=== PATIENT | female | born 1970 | race American Indian/Alaskan Native ===

== ENCOUNTER 2020-03-31 07:34 | Inpatient (IN) | payer OTHER ==
[2020-03-31] MEDS ORDERED: ONDANSETRON 4 MG/2 ML INJ ONE (08:14)
[2020-03-31] MEDS ORDERED: FUROSEMIDE 40 MG/4 ML INJ IV ONE (08:20)
[2020-03-31] MEDS ORDERED: ONDANSETRON 4 MG/2 ML INJ IV ONE ×2 (08:20)
[2020-03-31] MEDS ORDERED: PANTOPRAZOLE 40 MG INJ IV ONE (08:26)
--- NOTE | 2020-03-31 09:33 | XRay Report ---
CHEST 1 VIEW 8:51 AM INDICATION / CLINICAL INFORMATION: Neurologic deficit. COMPARISON: None available. FINDINGS: SUPPORT DEVICES: None. HEART / MEDIASTINUM: There is moderate enlargement of the cardiopericardial silhouette. Pulmonary vas culature is probably normal for technique. There is mild aortic tortuosity without aneurysm. LUNGS / PLEURA: No significant pulmonary or pleural abnormality. No pneumothorax. ADDITIONAL FINDINGS: No significant additional findings. IMPRESSION: Moderate enlargement of the cardiopericardial silhouette without acute pulmonary disease. Signer Name: Wilmer Damico MD Signed: 03/31/2020 9:29 AM Workstation Name: [id number]
[2020-03-31 09:42] LABS: Basophils % (Auto) 0.6 % (0.0-1.8); Hematocrit 33.1 % (30.3-42.9); Lymphocytes # (Auto) 0.2 K/mm3 (1.2-5.4); Lymphocytes % (Auto) 3.3 % (13.4-35.0); Mean Corpuscular HGB Conc 33 % (30-34); Mean Corpuscular Volume 86 fl (79-97); Monocytes # (Auto) 0.5 K/mm3 (0.0-0.8); Monocytes % (Auto) 7.8 % (0.0-7.3); Red Blood Count 3.86 M/mm3 (3.65-5.03)
[2020-03-31 09:43] LABS: Platelet Count 88 K/mm3 (140-440); Red Cell Distribution Width 20.1 % (13.2-15.2)
--- NOTE | 2020-03-31 09:46 | Cat Scan Report ---
CT head/brain wo con INDICATION / CLINICAL INFORMATION: 49 years Female; MAIN. TECHNIQUE: Routine CT head without contrast. All CT scans at this location are performed using CT dos e reduction for ALARA by means of automated exposure control. COMPARISON: No previous exams available for comparison. FINDINGS: BRAIN / INTRACRANIAL CONTENTS: There is cerebral white matter disease with areas of decrease attenuat ion involving the periventricular and subcortical regions. The findings are nonspecific though may re flect microvascular angiopathy, advanced for the patient's age. The ventricular system is within norm al limits in size and configuration. There is some beam hardening artifact. However, there is no veronique r CT evidence of acute intracranial hemorrhage or significant mass effect. ORBITS: No significant abnormality of visualized orbits. SINUSES / MASTOIDS: No significant abnormality in the visualized paranasal sinuses or mastoid air pricsilla ls. CRANIOCERVICAL JUNCTION: No significant abnormality. ADDITIONAL FINDINGS: None. IMPRESSION: 1. There is moderate cerebral white matter disease for age as detailed above. There is no CT evidence of acute intracranial hemorrhage. Signer Name: Stephan Bobby MD Signed: 03/31/2020 9:42 AM Workstation Name: [id number]
[2020-03-31 09:53] LABS: INR 1.07 (0.87-1.13)
[2020-03-31 09:54] LABS: Partial Thromboplastin Time 24.3 Sec. (24.2-36.6)
[2020-03-31 10:01] LABS: Thrombin Time 16.5 Sec. (15.1-19.6)
[2020-03-31 10:05] LABS: Creatine Kinase MB 7.3 ng/mL (0.0-4.0)
[2020-03-31 10:09] LABS: Alanine Aminotransferase 22 units/L (7-56); Albumin 4.3 g/dL (3.9-5); BUN/Creatinine Ratio 11; Bilirubin,Direct 0.3 mg/dL (0-0.2); Blood Urea Nitrogen 9 mg/dL (7-17); Calcium 8.9 mg/dL (8.4-10.2); Hemolysis Index 3
[2020-03-31] MEDS ORDERED: POTASSIUM CHLORIDE ER 20 MEQ TAB PO ONE (10:51)
--- NOTE | 2020-03-31 12:25 | Emergency Department Report ---
ED General Adult HPI - General Chief complaint: Nausea/Vomiting/Diarrhea Stated complaint: SEIZURE Time Seen by Provider: 03/31/20 08:18 Source: EMS Mode of arrival: Ambulatory Limitations: No Limitations - History of Present Illness Initial comments: 49-year-old female who experienced a presumed seizure. She told paramedics that she has had seizures before but never treated thereof. According to paramedics she was found on the floor with blood coming from her mouth. She was somewhat responsive. She arrived in the emergency department with altered mental status. It was unsure whether this was a postictal state or not. She was able to tell the paramedics that she did drink alcohol last night. However she did not smell of alcohol. She did not advise recent substance abuse. She has a history of hypertension but is noncompliant with medication. She did vomit prior to arrival. -: minutes(s) Severity scale (0 -10): 5 - Related Data Allergies Allergy/AdvReac Type Severity Reaction Status Date / Time No Known Allergies Allergy Unverified 03/31/20 08:20 ED Review of Systems ROS: Stated complaint: SEIZURE Other details as noted in HPI Comment: Unobtainable due to pts medical conditions ED Past Medical Hx - Past Medical History Previous Medical History?: Yes Hx Hypertension: Yes - Surgical History Past Surgical History?: No - Social History Smoking Status: Never Smoker Substance Use Type: Alcohol ED Physical Exam - General Limitations: Altered Mental Status General appearance: alert, in no apparent distress - Head Head exam: Present: atraumatic, normocephalic - Eye Eye exam: Present: normal appearance. Absent: scleral icterus - ENT ENT exam: Present: mucous membranes moist - Neck Neck exam: Present: normal inspection - Respiratory Respiratory exam: Present: normal lung sounds bilaterally. Absent: respiratory distress - Cardiovascular Cardiovascular Exam: Present: regular rate, normal rhythm. Absent: systolic murmur, diastolic murmur, rubs, gallop - GI/Abdominal GI/Abdominal exam: Present: soft, normal bowel sounds. Absent: distended, tenderness, guarding, rebound - Extremities Exam Extremities exam: Present: normal inspection - Back Exam Back exam: Present: normal inspection - Neurological Exam Neurological exam: Present: altered, CN II-XII intact (As testable). Absent: motor sensory deficit - Psychiatric Psychiatric exam: Present: normal affect, normal mood - Skin Skin exam: Present: warm, dry, intact, normal color. Absent: rash ED Course Vital Signs 03/31/20 03/31/20 03/31/20 08:05 10:00 10:07 Temperature 98.2 F Pulse Rate 89 86 Respiratory 18 18 Rate Blood Pressure 224/174 195/102 Blood Pressure 224/174 [Right] O2 Sat by Pulse 100 100 Oximetry 03/31/20 12:14 Temperature Pulse Rate 88 Respiratory Rate Blood Pressure 195/126 Blood Pressure [Right] O2 Sat by Pulse Oximetry - Reevaluation(s) Reevaluation #1: Patient's mental status has improved somewhat. However her blood pressure has remained as high as over 200 systolic. She was given additional medicine. She was found to have some possible blood admixed with vomit on her clothing. EMS noted that this was possibly due to bleeding from the mouth. It is uncertain as to whether she had a seizure. CT the head showed nothing acute Patient was given potassium for her hypokalemia. It was concluded that she had malignant hypertension and possibly a seizure or hypertensive encephalopathy. She is referred to the hospitalist service for further care and management. 03/31/20 12:28 ED Medical Decision Making - Lab Data Result diagrams: 03/31/20 08:46 03/31/20 08:46 Laboratory Results - last 24 hr 03/31/20 03/31/20 03/31/20 08:46 08:46 08:46 WBC 6.3 RBC 3.86 Hgb 11.0 Hct 33.1 MCV 86 MCH 28 MCHC 33 RDW 20.1 H Plt Count 88 L Lymph % (Auto) 3.3 L [place] % (Auto) 7.8 H Eos % (Auto) 0.0 Baso % (Auto) 0.6 Lymph # (Auto) 0.2 L [place] # (Auto) 0.5 Eos # (Auto) 0.0 Baso # (Auto) 0.0 Seg Neutrophils % 88.3 H Seg Neutrophils # 5.6 PT 13.8 INR 1.07 APTT 24.3 Thrombin Time 16.5 Sodium 134 L Potassium 3.1 L Chloride 90.0 L Carbon Dioxide 26 Anion Gap 21 BUN 9 Creatinine 0.8 Estimated GFR > 60 BUN/Creatinine Ratio 11 Glucose 198 H POC Glucose Calcium 8.9 Total Bilirubin 1.10 Direct Bilirubin 0.3 H Indirect Bilirubin 0.8 AST 38 ALT 22 Alkaline Phosphatase 96 Total Creatine Kinase 279 H CK-MB (CK-2) 7.3 H CK-MB (CK-2) Rel Index 2.6 Troponin T < 0.010 NT-Pro-B Natriuret Pep Total Protein 7.7 Albumin 4.3 Albumin/Globulin Ratio 1.3 Plasma/Serum Alcohol Blood Type Antibody Screen 03/31/20 03/31/20 03/31/20 08:46 08:46 08:50 WBC RBC Hgb Hct MCV MCH MCHC RDW Plt Count Lymph % (Auto) [place] % (Auto) Eos % (Auto) Baso % (Auto) Lymph # (Auto) [place] # (Auto) Eos # (Auto) Baso # (Auto) Seg Neutrophils % Seg Neutrophils # PT INR APTT Thrombin Time Sodium Potassium Chloride Carbon Dioxide Anion Gap BUN Creatinine Estimated GFR BUN/Creatinine Ratio Glucose POC Glucose Calcium Total Bilirubin Direct Bilirubin Indirect Bilirubin AST ALT Alkaline Phosphatase Total Creatine Kinase CK-MB (CK-2) CK-MB (CK-2) Rel Index Troponin T NT-Pro-B Natriuret Pep 313.8 Total Protein Albumin Albumin/Globulin Ratio Plasma/Serum Alcohol < 0.01 Blood Type O POSITIVE Antibody Screen Negative 03/31/20 10:03 WBC RBC Hgb Hct MCV MCH MCHC RDW Plt Count Lymph % (Auto) [place] % (Auto) Eos % (Auto) Baso % (Auto) Lymph # (Auto) [place] # (Auto) Eos # (Auto) Baso # (Auto) Seg Neutrophils % Seg Neutrophils # PT INR APTT Thrombin Time Sodium Potassium Chloride Carbon Dioxide Anion Gap BUN Creatinine Estimated GFR BUN/Creatinine Ratio Glucose POC Glucose 134 H Calcium Total Bilirubin Direct Bilirubin Indirect Bilirubin AST ALT Alkaline Phosphatase Total Creatine Kinase CK-MB (CK-2) CK-MB (CK-2) Rel Index Troponin T NT-Pro-B Natriuret Pep Total Protein Albumin Albumin/Globulin Ratio Plasma/Serum Alcohol Blood Type Antibody Screen - EKG Data -: EKG Interpreted by Me EKG shows normal: sinus rhythm - EKG Data Interpretation: LVH (Deep inferolateral T wave in inversions may be associated with LVH) - Radiology Data Radiology results: image reviewed (Suggestive of cardiomegaly perhaps with some venous congestion to me) Critical care attestation.: If time is entered above; I have spent that time in minutes in the direct care o f this critically ill patient, excluding procedure time. ED Disposition Clinical Impression: Malignant hypertension, Hypokalemia Syncope Qualifiers: Syncope type: unspecified Qualified Code(s): R55 - Syncope and collapse Altered mental status Qualifiers: Altered mental status type: delirium Qualified Code(s): R41.0 - Disorientation, unspecified Disposition: 09 OP ADMIT IP TO THIS HOSP Is pt being admited?: Yes Does the pt Need Aspirin: Yes Condition: Stable Instructions: Syncope (ED), Hypertension (ED) Referrals: PRIMARY CARE, [Primary Care Provider] - 3-5 Days Time of Disposition: 12:31
[2020-03-31] MEDS ORDERED: ASPIRIN 325 MG TAB PO ONE (12:32)
[2020-03-31] MEDS ORDERED: hydrALAZINE 25 MG TAB PO ONE (14:38)
[2020-03-31] MEDS ORDERED: LORazepam 2 MG/ML VIAL ONE (19:21)
[2020-03-31] MEDS ORDERED: levETIRAcetam 1,000 MG in DEXTROSE 5% IN WATER 100 ML IV ONE (19:34)
[2020-03-31] MEDS ORDERED: LORazepam 2 MG/ML VIAL IV ONE (19:48)
[2020-03-31] MEDS ORDERED: levETIRAcetam 1000 MG/NS 0.75% 1,000 MG/100 ML BAG IV ONE (20:30)
[2020-03-31] MEDS ORDERED: ONDANSETRON 4 MG/2 ML INJ IV PRN (20:42)
[2020-03-31] MEDS ORDERED: SODIUM CHLORIDE 0.9% 1000 ML 1,000 ML IV SCH (20:45)
--- NOTE | 2020-03-31 20:46 | History and Physical Report ---
History of Present Illness Chief complaint: My head was hurting History of present illness: 49 YO Female with HTN, ETOH Dependence presents to ED for evaluation. Patient is lethargic and unable to provide history at the time of my evaluation. Patient history taken from EMS, ED staff as well as the patient's family. As per family the patient was found down on the floor with blood coming from her mouth. Family reports they suspect patient "had a seizure". EMS was notified and upon arrival the patient was found to be in distress and subsequently transported to [facility] for further care and evaluation. Patient seen and evaluated in the emergency department. Lab and imaging studies reviewed. Patient found to have a blood pressure of 224 131. Patient found to have status epilepticus suspected secondary to alcohol withdrawal, metabolic encephalopathy, accelerated hypertension. Patient admitted to telemetry due to increased risk of worsening symptoms. Patient initiated on CIWA protocol as well as IV antihypertensive therapy. No further history obtainable. Patient is confused and lethargic at the time of my evaluation but has a positive gag reflex and is able to protect her airway. No prior admission for review. No medication listed at time of admission for reconciliation. Past History Past Medical History: hypertension, other (See HPI) Past Surgical History: No surgical history (Reviewed), Other Social history: , alcohol abuse Family history: hypertension Medications and Allergies Allergies Allergy/AdvReac Type Severity Reaction Status Date / Time No Known Allergies Allergy Unverified 03/31/20 08:20 Active Meds: Active Medications Acetaminophen (Acetaminophen 325 Mg Tab) 650 mg PO Q4H PRN PRN Reason: Pain MILD(1-3)/Fever >100.5/STRONG Famotidine (Famotidine 10 Mg Tab) 10 mg PO BID MELANIE Sodium Chloride (Nacl 0.9% 1000 Ml) 1,000 mls @ 125 mls/hr IV DIRECT MELANIE Levetiracetam (Levetiracetam 500 Mg Tab) 500 mg PO BID MELANIE Ondansetron HCl (Ondansetron 4 Mg/2 Ml Inj) 4 mg IV Q8H PRN PRN Reason: Nausea And Vomiting Sodium Chloride (Sodium Chloride 0.9% 10 Ml Flush Syringe) 10 ml IV BID MELANIE Sodium Chloride (Sodium Chloride 0.9% 10 Ml Flush Syringe) 10 ml IV PRN PRN PRN Reason: LINE FLUSH Review of Systems ROS unobtainable: due to mental status Exam - Constitutional Vitals: Temp Pulse Resp BP Pulse Ox 98.7 F 95 H 21 224/131 100 03/31/20 08:05 03/31/20 19:45 03/31/20 19:45 03/31/20 19:45 03/31/20 19:45 General appearance: Present: mild distress - EENT Eyes: Present: PERRL ENT: hearing intact, clear oral mucosa - Neck Neck: Present: supple, normal ROM - Respiratory Respiratory effort: normal Respiratory: bilateral: CTA - Cardiovascular Heart Sounds: Present: S1 & S2. Absent: rub, click - Extremities Extremities: pulses symmetrical, No edema Peripheral Pulses: within normal limits - Abdominal General gastrointestinal: Present: soft, non-tender, non-distended, normal bowel sounds Female genitourinary: Present: normal - Integumentary Integumentary: Present: clear, warm, dry - Musculoskeletal Musculoskeletal: gait normal, strength equal bilaterally - Psychiatric Psychiatric: no appropriate mood/affect, no intact judgment & insight, no memory intact - Neurologic Neurologic: CNII-XII intact, moves all extremities HEART Score - HEART Score Troponin: Troponin T < 0.010 ng/mL (0.00-0.029) 03/31/20 08:46 Results - Labs CBC & Chem 7: 03/31/20 08:46 03/31/20 08:46 Labs: Abnormal lab results 03/31/20 03/31/20 03/31/20 Range/Units 08:46 08:46 10:03 RDW 20.1 H (13.2-15.2) % Plt Count 88 L (140-440) K/mm3 Lymph % (Auto) 3.3 L (13.4-35.0) % [place] % (Auto) 7.8 H (0.0-7.3) % Lymph # (Auto) 0.2 L (1.2-5.4) K/mm3 Seg Neutrophils % 88.3 H (40.0-70.0) % Sodium 134 L (137-145) mmol/L Potassium 3.1 L (3.6-5.0) mmol/L Chloride 90.0 L (98-107) mmol/L Glucose 198 H (65-100) mg/dL POC Glucose 134 H (70-105) mg/dL Direct Bilirubin 0.3 H (0-0.2) mg/dL Total Creatine Kinase 279 H (30-135) units/L CK-MB (CK-2) 7.3 H (0.0-4.0) ng/mL Assessment and Plan - Patient Problems (1) Status epilepticus Current Visit: Yes Status: Acute Plan to address problem: CT head, neuro check, patient loaded with 1 g Keppra in the emergency department and initiated on Keppra 500 mg p.o. twice daily, supportive care (2) Metabolic encephalopathy Current Visit: Yes Status: Acute Plan to address problem: CT scan of the head, neuro check, BMP, supportive care, fall precautions, seizure precautions, urine drug screen (3) Hypokalemia Current Visit: Yes Status: Acute Plan to address problem: Repleted in the emergency department. (4) Malignant hypertension Current Visit: Yes Status: Acute Plan to address problem: Monitor blood pressure every shift, continue medical management, hydralazine 10 mg IV every 4 hours as needed for systolic blood pressure greater than or equal to 185 (5) Alcohol dependence Current Visit: Yes Status: Acute Plan to address problem: BanVIANNEY garcia protocol, supportive care, blood alcohol level. (6) DVT prophylaxis Current Visit: Yes Status: Acute Plan to address problem: SCD to bilateral lower extremities while in bed, prophylactic anticoagulation
[2020-03-31] MEDS ORDERED: MAGNESIUM SULFATE 1 GM in SODIUM CHLORIDE 0.9% 50 ML IV ONE (21:00)
[2020-03-31] MEDS ORDERED: LORazepam 2 MG/ML VIAL IV PRN (21:02)
[2020-03-31] MEDS ORDERED: THIAMINE 100 MG, FOLIC ACID 1 MG, MULTIPLE VITAMIN INJ, ADULT 10 ML in SODIUM CHLORIDE ... IV ONE (22:15)
[2020-03-31] MEDS: ACETAMINOPHEN 325 MG TAB PO PRN (23:37)
[2020-03-31] MEDS: levETIRAcetam 500 MG TAB PO SCH (23:37)
[2020-04-01] MEDS: FAMOTIDINE 10 MG TAB PO SCH ×3 (01:15→22:33)
[2020-04-01 06:20] LABS: BUN/Creatinine Ratio 13; Blood Urea Nitrogen 13 mg/dL (7-17); Calcium 8.2 mg/dL (8.4-10.2); Hemolysis Index 2
[2020-04-01] MEDS ORDERED: POTASSIUM CHLORIDE ER 20 MEQ TAB PO NR (08:15)
[2020-04-01] MEDS: levETIRAcetam 500 MG TAB PO SCH ×2 (12:10→22:33)
[2020-04-01] MEDS: amLODIPine 10 MG TAB PO SCH (12:10)
[2020-04-01] MEDS: ACETAMINOPHEN 325 MG TAB PO PRN (12:11)
--- NOTE | 2020-04-01 13:32 | Progress Note ---
Assessment and Plan Assessment and plan: --Seizure Current Visit: Yes Status: Acute Plan to address problem: CT head, neuro check, patient loaded with 1 g Keppra in the emergency department and initiated on Keppra 500 mg p.o. twice daily, supportive care Neurology consulted MRI w/wo contrast and EEG ordered --Metabolic encephalopathy - Resolved Current Visit: Yes Status: Acute Plan to address problem: CT scan of the head, neuro check, BMP, supportive care, fall precautions, seizure precautions, urine drug screen --Malignant hypertension Current Visit: Yes Status: Acute Plan to address problem: Monitor blood pressure every shift, continue medical management, hydralazine 10 mg IV every 4 hours as needed for systolic blood pressure greater than or equal to 185 --Alcohol dependence Current Visit: Yes Status: Acute Plan to address problem: Banana bag, CIWA protocol, supportive care, blood alcohol level. --DVT prophylaxis Current Visit: Yes Status: Acute Plan to address problem: SCD to bilateral lower extremities while in bed, prophylactic anticoagulation History Interval history: No seizures overnight. On Keppra Neurology consulted. MRI and EEG ordered Hospitalist Physical - Physical exam Narrative exam: VITAL SIGNS: Reviewed. GENERAL: Awake HEAD: No signs of head trauma. EYES: Pupils are equal. Extraocular motions intact. MOUTH: Oropharynx is normal. NECK: No adenopathy, no JVD. CHEST: Chest with diminished breath sounds bilaterally. No wheezes, rales, or rhonchi. CARDIAC: normal S1 and S2, without murmurs, gallops, or rubs. ABDOMEN: Soft, non tender and non distended. No rebound or guarding, and no masses palpated. Bowel Sounds normal. MUSCULOSKELETAL: No edema NEUROLOGIC EXAM: Alert and oriented x3. No focal neurologic deficits SKIN: No obvious lesions - Constitutional Vitals: Temp Pulse Resp BP Pulse Ox 98.6 F 81 18 157/98 97 04/01/20 11:49 04/01/20 12:10 04/01/20 11:49 04/01/20 12:10 04/01/20 11:49 General appearance: Present: mild distress HEART Score - HEART Score Troponin: Troponin T < 0.010 ng/mL (0.00-0.029) 03/31/20 08:46 Results - Labs CBC & Chem 7: 03/31/20 08:46 04/01/20 05:13 Labs: Laboratory Last Values WBC 6.3 K/mm3 (4.5-11.0) 03/31/20 08:46 RBC 3.86 M/mm3 (3.65-5.03) 03/31/20 08:46 Hgb 11.0 gm/dl (10.1-14.3) 03/31/20 08:46 Hct 33.1 % (30.3-42.9) 03/31/20 08:46 MCV 86 fl (79-97) 03/31/20 08:46 MCH 28 pg (28-32) 03/31/20 08:46 MCHC 33 % (30-34) 03/31/20 08:46 RDW 20.1 % (13.2-15.2) H 03/31/20 08:46 Plt Count 88 K/mm3 (140-440) L 03/31/20 08:46 Lymph % (Auto) 3.3 % (13.4-35.0) L 03/31/20 08:46 [place] % (Auto) 7.8 % (0.0-7.3) H 03/31/20 08:46 Eos % (Auto) 0.0 % (0.0-4.3) 03/31/20 08:46 Baso % (Auto) 0.6 % (0.0-1.8) 03/31/20 08:46 Lymph # (Auto) 0.2 K/mm3 (1.2-5.4) L 03/31/20 08:46 [place] # (Auto) 0.5 K/mm3 (0.0-0.8) 03/31/20 08:46 Eos # (Auto) 0.0 K/mm3 (0.0-0.4) 03/31/20 08:46 Baso # (Auto) 0.0 K/mm3 (0.0-0.1) 03/31/20 08:46 Seg Neutrophils % 88.3 % (40.0-70.0) H 03/31/20 08:46 Seg Neutrophils # 5.6 K/mm3 (1.8-7.7) 03/31/20 08:46 PT 13.8 Sec. (12.2-14.9) 03/31/20 08:46 INR 1.07 (0.87-1.13) 03/31/20 08:46 APTT 24.3 Sec. (24.2-36.6) 03/31/20 08:46 Thrombin Time 16.5 Sec. (15.1-19.6) 03/31/20 08:46 Sodium 139 mmol/L (137-145) 04/01/20 05:13 Potassium 3.3 mmol/L (3.6-5.0) L 04/01/20 05:13 Chloride 95.5 mmol/L (98-107) L 04/01/20 05:13 Carbon Dioxide 29 mmol/L (22-30) 04/01/20 05:13 Anion Gap 18 mmol/L 04/01/20 05:13 BUN 13 mg/dL (7-17) 04/01/20 05:13 Creatinine 1.0 mg/dL (0.6-1.2) 04/01/20 05:13 Estimated GFR > 60 ml/min 04/01/20 05:13 BUN/Creatinine Ratio 13 % 04/01/20 05:13 Glucose 97 mg/dL (65-100) 04/01/20 05:13 POC Glucose 134 mg/dL (70-105) H 03/31/20 10:03 Calcium 8.2 mg/dL (8.4-10.2) L 04/01/20 05:13 Total Bilirubin 1.10 mg/dL (0.1-1.2) 03/31/20 08:46 Direct Bilirubin 0.3 mg/dL (0-0.2) H 03/31/20 08:46 Indirect Bilirubin 0.8 mg/dL 03/31/20 08:46 AST 38 units/L (5-40) 03/31/20 08:46 ALT 22 units/L (7-56) 03/31/20 08:46 Alkaline Phosphatase 96 units/L (35-129) 03/31/20 08:46 Total Creatine Kinase 279 units/L (30-135) H 03/31/20 08:46 CK-MB (CK-2) 7.3 ng/mL (0.0-4.0) H 03/31/20 08:46 CK-MB (CK-2) Rel Index 2.6 (0-4) 03/31/20 08:46 Troponin T < 0.010 ng/mL (0.00-0.029) 03/31/20 08:46 NT-Pro-B Natriuret Pep 313.8 pg/mL (0-450) 03/31/20 08:46 Total Protein 7.7 g/dL (6.3-8.2) 03/31/20 08:46 Albumin 4.3 g/dL (3.9-5) 03/31/20 08:46 Albumin/Globulin Ratio 1.3 % 03/31/20 08:46 Plasma/Serum Alcohol < 0.01 % (0-0.07) 03/31/20 08:46 Blood Type O POSITIVE 03/31/20 08:50 Antibody Screen Negative 03/31/20 08:50 Hurd/IV: IV Catheter Type [Left INT / Saline Lock Antecubital] Active Medications - Current Medications Current Medications: Generic Name Dose Route Start Last Admin Trade Name Freq PRN Reason Stop Dose Admin Acetaminophen 650 mg 03/31/20 20:42 04/01/20 12:11 Acetaminophen 325 Mg Tab PO 650 mg Q4H PRN Administration Pain MILD(1-3)/Fever >100.5/STRONG Amlodipine Besylate 10 mg 04/01/20 10:00 04/01/20 12:10 Amlodipine 10 Mg Tab PO 10 mg QDAY MELANIE Administration Famotidine 10 mg 03/31/20 22:00 04/01/20 12:10 Famotidine 10 Mg Tab PO 10 mg BID MELANIE Administration Sodium Chloride 1,000 mls @ 125 mls/hr 03/31/20 20:45 04/01/20 07:18 Nacl 0.9% 1000 Ml IV 125 mls/hr DIRECT MELANIE Administration Levetiracetam 500 mg 03/31/20 22:00 04/01/20 12:10 Levetiracetam 500 Mg Tab PO 500 mg BID MELANIE Administration Lorazepam 2 mg 03/31/20 21:02 Lorazepam 2 Mg/Ml Vial IV Q1HR PRN CIWA-Ar 8-15 Ondansetron HCl 4 mg 03/31/20 20:42 Ondansetron 4 Mg/2 Ml Inj IV Q8H PRN Nausea And Vomiting Sodium Chloride 10 ml 03/31/20 22:00 04/01/20 12:11 Sodium Chloride 0.9% 10 Ml Flush Syringe IV 10 ml BID MELANIE Administration Sodium Chloride 10 ml 03/31/20 20:42 Sodium Chloride 0.9% 10 Ml Flush Syringe IV PRN PRN LINE FLUSH
[2020-04-02] MEDS ORDERED: hydrALAZINE 20 MG/1 ML INJ IV ONE (00:44)
[2020-04-02] MEDS: FAMOTIDINE 10 MG TAB PO SCH (09:42)
[2020-04-02] MEDS: levETIRAcetam 500 MG TAB PO SCH (09:42)
[2020-04-02] MEDS: amLODIPine 10 MG TAB PO SCH (09:42)
[2020-04-02] MEDS: ACETAMINOPHEN 325 MG TAB PO PRN (09:47)
--- NOTE | 2020-04-02 11:26 | Consultation ---
History of Present Illness Consult date: 04/02/20 Reason for Consult: Seizure disorder Chief complaint: Seizure History of present illness: 49 yo female with alcohol dependence who presents after being found down and with a concern for a seizure per family. Also noted with blood at the mouth Patient denies any history of loss of consciousness or change of consciousness events. No hx of seizures. She is amnestic to the event. Currently she is waiting to go home. Past History Past Medical History: hypertension, other (See HPI) Past Surgical History: No surgical history (Reviewed), Other Social history: , alcohol abuse Family history: hypertension Medications and Allergies Allergies Allergy/AdvReac Type Severity Reaction Status Date / Time No Known Allergies Allergy Unverified 03/31/20 08:20 Home Medications Medication Instructions Recorded Confirmed Last Taken Type Valsartan [Diovan] 160 mg PO DAILY #30 tablet 04/02/20 Unknown Rx amLODIPine 10 mg PO QDAY #30 tablet 04/02/20 Unknown Rx hydrALAZINE [Apresoline TAB] 25 mg PO Q12HR #60 tab 04/02/20 Unknown Rx levETIRAcetam [Keppra TAB] 500 mg PO BID #60 tablet 04/02/20 Unknown Rx Active Meds: Active Medications Acetaminophen (Acetaminophen 325 Mg Tab) 650 mg PO Q4H PRN PRN Reason: Pain MILD(1-3)/Fever >100.5/STRONG Last Admin: 04/02/20 09:47 Dose: 650 mg Documented by: Amlodipine Besylate (Amlodipine 10 Mg Tab) 10 mg PO QDAY [facility] Last Admin: 04/02/20 09:42 Dose: 10 mg Documented by: Famotidine (Famotidine 10 Mg Tab) 10 mg PO BID [facility] Last Admin: 04/02/20 09:42 Dose: 10 mg Documented by: Levetiracetam (Levetiracetam 500 Mg Tab) 500 mg PO BID [facility] Last Admin: 04/02/20 09:42 Dose: 500 mg Documented by: Lorazepam (Lorazepam 2 Mg/Ml Vial) 2 mg IV Q1HR PRN PRN Reason: CIWA-Ar 8-15 Ondansetron HCl (Ondansetron 4 Mg/2 Ml Inj) 4 mg IV Q8H PRN PRN Reason: Nausea And Vomiting Sodium Chloride (Sodium Chloride 0.9% 10 Ml Flush Syringe) 10 ml IV BID [facility] Last Admin: 04/02/20 09:49 Dose: 10 ml Documented by: Sodium Chloride (Sodium Chloride 0.9% 10 Ml Flush Syringe) 10 ml IV PRN PRN PRN Reason: LINE FLUSH Last Admin: 04/02/20 01:12 Dose: 10 ml Documented by: Review of Systems All systems: negative (except as per HPI;) Physical Examination - Vital Signs Vital Signs: Vital Signs Pulse 103 H 03/31/20 07:57 Results - Laboratory Findings CBC and BMP: 03/31/20 08:46 04/01/20 05:13 Abnormal Lab Findings: Abnormal Labs 03/31/20 03/31/20 03/31/20 08:46 08:46 10:03 RDW 20.1 H Plt Count 88 L Lymph % (Auto) 3.3 L [place] % (Auto) 7.8 H Lymph # (Auto) 0.2 L Seg Neutrophils % 88.3 H Sodium 134 L Potassium 3.1 L Chloride 90.0 L Glucose 198 H POC Glucose 134 H Calcium Direct Bilirubin 0.3 H Total Creatine Kinase 279 H CK-MB (CK-2) 7.3 H 04/01/20 05:13 RDW Plt Count Lymph % (Auto) [place] % (Auto) Lymph # (Auto) Seg Neutrophils % Sodium Potassium 3.3 L Chloride 95.5 L Glucose POC Glucose Calcium 8.2 L Direct Bilirubin Total Creatine Kinase CK-MB (CK-2) Assessment and Plan 49 yo female w/ alcohol dependence with a loss of consciousness event. 1. Seizure - mri [place] unremarkable for a brain parencyhymal abnormality; eeg report pending; w/o eeg report it is hard-pressed regarding an AED decision; discussed with the attending and the plan is to continue Keppra until pt follows up with Neurology by which time the eeg report should be available and the decision to continue or not with the AED can be made at the time. In the meantime, seizure restrictions, including driving restrictions, no opeation of heavy machinery, no supervisory roles, no self-climb, swim, bath, cook, and no babysitting roles. 2. Aneurysm - recommend followup with neurosurgery in 4-6 weeks. 3. Alcohol Dependence - recommend help via pcp through an outpatient program. Linden Damico MD Neurology
--- NOTE | 2020-04-02 12:27 | Magnetic Resonance Report ---
NONENHANCED AND CONTRAST ENHANCED MR SCAN OF THE BRAIN: INDICATION / CLINICAL INFORMATION: Seizure. TECHNIQUE: Multiplanar, multisequence MR images of the brain obtained. COMPARISON: CT scan of the head from 03/31/2020 FINDINGS: BRAIN / INTRACRANIAL CONTENTS: No acute ischemia, acute hemorrhage, mass effect, midline shift, or hy drocephalus. No chronic infarct or encephalomalacia. Chronic ischemic changes in the taly[place], periventr icular and deep hemispheric white matter (Fazekas 2) due to chronic small vessel disease. No enhancin g parenchymal or meningeal lesions in the brain Given the history of seizures, no space taking lesion in the temporal lobes; hippocampi are normal; n o MR findings to suggest focal cortical dysplasia CRANIOCERVICAL JUNCTION: No significant abnormality. VASCULAR FLOW-VOIDS: Focal area of prominent flow void in the ophthalmic segment of right internal ca rotid artery; this could be due to tortuous artery; please obtain CTA of the brain and MRA of the bra in to rule out aneurysms in the ophthalmic segment of right internal carotid artery ORBITS: No significant abnormality of visualized orbits. SINUSES / MASTOIDS: No significant abnormality of visualized sinuses and mastoid air cells. ADDITIONAL FINDINGS: None. IMPRESSION: 1. No space taking lesion in the brain Normal hippocampi Focal area of prominent signal void in the ophthalmic segment of right internal carotid artery; thoug h this could be due to tortuosity, please obtain CTA or MRA of the brain to rule out aneurysm Signer Name: Bonita Avery MD Signed: 04/02/2020 12:22 PM Workstation Name: [id number]
--- NOTE | 2020-04-02 16:15 | Cat Scan Report ---
CTA HEAD WITH CONTRAST HISTORY: Seizure COMPARISON: None. TECHNIQUE: Routine non-contrast CT Head, CTA of the head and post-contrast CT Head are performed. 3-D /MIP reformats postprocessed. All CT scans at this location are performed using CT dose reduction for ALARA by means of automated exposure control CONTRAST: 100 ml of Omnipaque 350 FINDINGS: CTA Head: Intracranial vertebral arteries: No significant abnormality. Basilar artery: No significant abnormality. Posterior cerebral arteries: No significant abnormality. Intracranial internal carotid arteries: 4 mm sized aneurysm in the ophthalmic segment of right psychology intern al carotid artery, probably at the origin of the superior hypophyseal artery; wide neck; left interna l carotid artery normal Anterior cerebral arteries: No significant abnormality. Middle cerebral arteries: No significant abnormality. Dural venous sinuses:Not optimally opacified. No significant abnormality. Additional findings: None. IMPRESSION: 1. 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
--- NOTE | 2020-04-02 16:45 | Discharge Summary ---
Providers - Providers Date of Admission: 03/31/20 20:42 Date of discharge: 04/02/20 Attending physician: GURJIT HIGGINBOTHAM 04/01/20 13:30 Consult to Physician [CONS] Routine Comment: Consulting Provider: BETTY MCKINNEY Physician Instructions: Reason For Exam: seizure disorder Primary care physician: RN POOL Hospitalization Condition: Stable Hospital course: 49 YO Female with HTN, ETOH Dependence presents to ED for evaluation. Patient is lethargic and unable to provide history at the time of my evaluation. Patient history taken from EMS, ED staff as well as the patient's family. As per family the patient was found down on the floor with blood coming from her mouth. Family reports they suspect patient "had a seizure". EMS was notified and upon arrival the patient was found to be in distress and subsequently transported to [facility] for further care and evaluation. Patient seen and evaluated in the emergency department. Lab and imaging studies reviewed. Patient found to have a blood pressure of 224 131. Patient found to have status epilepticus suspected secondary to alcohol withdrawal, metabolic encephalopathy, accelerated hypertension. Patient admitted to telemetry due to increased risk of worsening symptoms. Patient initiated on CIWA protocol as well as IV antihypertensive therapy. No further history obtainable. Patient is confused and lethargic at the time of my evaluation but has a positive gag reflex and is able to protect her airway. No prior admission for review. No medication listed at time of admission for reconciliation. Hospital course. Patient's mental status improved. She had CT head performed that was negative for any stroke. MRI performed showed no acute abnormality-there was a suspicion of possible 4 mm aneurysm around the right ICA. Patient will need to follow-up with neurosurgery in the office for further evaluation. Her blood pressure has improved on amlodipine. Added valsartan and hydralazine to her regimen. She has been advised to continue to monitor her blood pressure closely. Patient wants to go home today. Already had an EEG performed but results still pending for now. I will have patient follow-up with the neurology in the office for results. She has been advised to not drive or operate heavy machinery for at least 6 months and until she she has been cleared by neurologist. She is alert and oriented x3 and has no complaints. Disposition: - TO HOME OR SELFCARE - Discharge Diagnoses (1) Seizure Status: Acute (2) Hypokalemia Status: Acute (3) Malignant hypertension Status: Acute Core Measure Documentation - Palliative Care Palliative Care/ Comfort Measures: Not Applicable - Core Measures Any of the following diagnoses?: none Exam - Physical Exam Narrative exam: VITAL SIGNS: Reviewed. GENERAL: Awake HEAD: No signs of head trauma. EYES: Pupils are equal. Extraocular motions intact. MOUTH: Oropharynx is normal. NECK: No adenopathy, no JVD. CHEST: Chest with diminished breath sounds bilaterally. No wheezes, rales, or rhonchi. CARDIAC: normal S1 and S2, without murmurs, gallops, or rubs. ABDOMEN: Soft, non tender and non distended. No rebound or guarding, and no masses palpated. Bowel Sounds normal. MUSCULOSKELETAL: No edema NEUROLOGIC EXAM: Alert and oriented x3. No focal neurologic deficits SKIN: No obvious lesions - Constitutional Vitals: Temp Pulse Resp BP Pulse Ox 98.5 F 79 18 185/105 100 04/02/20 12:04/02/20 12:04/02/20 12:04/02/20 12:04/02/20 07:58 Plan Additional Instructions: Do not drive or operate heavy machinery for at least 6 months and until cleared by your primary medical doctor or the neurologist. Continue Keppra 500 mg twice daily. Follow-up with neurology in the office. Continue amlodipine, valsartan and hydralazine as ordered. Continue to monitor blood pressure closely. Follow-up with PCP immediately after discharge for blood pressure monitoring. Follow-up with neurosurgery in the office for evaluation of aneurysm and internal carotid artery. Follow up with: PRIMARY MD LISSA [Primary Care Provider] - 3-5 Days STEPHANY SETH II, MD [Staff Physician] - 7 Days ELVIS SHANKAR MD [Referring] - 7 Days Prescriptions: amLODIPine 10 mg PO QDAY #30 tablet hydrALAZINE [Apresoline TAB] 25 mg PO Q12HR #60 tab Valsartan [Diovan] 160 mg PO DAILY #30 tablet levETIRAcetam [Keppra TAB] 500 mg PO BID #60 tablet
[2020-04-02] MEDS ORDERED: VALSARTAN 160MG TAB PO SCH (17:00)
[2020-04-02 20:22] VITALS: BP 161/68
== END 2020-04-02 18:52 | disposition home or self-care (01) | DRG 100 ==
LOC: ED 07:34 → 4A 20:42
PROVIDERS: ADMIT Internal Medicine; ATTEND Internal Medicine
DX: G40.901 Epilepsy, unspecified, not intractable, with status epilepticus (principal); G93.41 Metabolic encephalopathy; I10 Essential (primary) hypertension; F10.20 Alcohol dependence, uncomplicated; E87.6 Hypokalemia; Z82.49 Family history of ischemic heart disease and other diseases of the circulatory system; Z79.899 Other long term (current) drug therapy
CPT/HCPCS: 36415; 70450; 70496; 70553; 71045; 80048; 80076; 80320; 82550; 82553; 82962; 83880; 84484; 85025; 85610; 85670; 85730; 86850; 86900; 86901; 93005; 95819; 96374; 96375; G0378; C9113; G0480; J0360; J1940; J1953; J2060; J2405; J3411; J3475; J7030; Q9967